=== PATIENT | male | born 1950 | race Caucasian/White ===

== ENCOUNTER 2017-03-14 05:52 | Emergency (ER) | payer MEDICARE, OTHER ==
--- NOTE | ~2017-03-14 | EKG ---
PATIENT: TRUMAN GALLARDO UNIT #: [id number] Ventricular Rate: 79 BPM Atrial Rate: 79 BPM P-R Interval: 164 ms QRS Duration: 88 ms Q-T Interval: 386 ms QTC Calculation(Bezet): 442 ms P [place]: 88 degrees Calculated R [place]: 4 degrees Calculated T [place]: 11 degrees Diagnosis Line: Normal sinus rhythm Diagnosis Line: Nonspecific ST abnormality Diagnosis Line: Abnormal ECG Diagnosis Line: No previous ECGs available Diagnosis Line: Confirmed by BERNIE MARINA MD ([id number]) on Diagnosis Line: 03/18/2017 8:50:27 AM INTERPRETING MD: LAINA CALLOWAY
--- NOTE | ~2017-03-14 | CT2 ---
[facility]. [facility] A Service of [facility] RADIOLOGY TEXT RESULTS PATIENT: TRUMAN GALLARDO LOCATION: SED : 52 UNIT #: [id number] AGE: [address]: Selene Mukherjee MD SEX: M ORDER DR: [id number] [address] [id number] MR#: [id number] #: [id number] NAME: TRUMAN GALLARDO : 1950 SEX: M STUDY DATE/TIME: 03/14/2017 8:10 UNIT: SED ROOM: STUDY DESCRIPTION: CT Abd and Pelv W Cont Attending Physician: Sleene Mukherjee M.D. Ordering Physician: Selene Mukherjee M.D. Primary Care Physician: No Primary Care Physician MEDICAL IMAGING REPORT This report is preliminary unless electronic signature is present. EXAM Abdomen and pelvis CT with contrast. HISTORY Nausea, vomiting, and diarrhea for the past 2 days. TECHNIQUE Axial images were obtained through the abdomen pelvis with contrast. 100 mL of Isovue was used. This CT exam was performed with one or more of the following radiation dose reduction techniques: automatic exposure control, adjustment of mA and/or kV according to patient size, and iterative reconstruction. FINDINGS Linear scarring at the right lung base posteromedially is unchanged from the previous exam. The liver, spleen, and pancreas are normal in size. The biliary tree is borderline prominent and the gallbladder is quite distended. The gallbladder wall does not appear to be thickened or hyperenhancing. There are some subtle density variations within the gallbladder suggesting possible gallstones. No distended bowel loops are seen. Moderately increased stool is seen throughout the colon. In the pelvis, there is no evidence of adenopathy, mass, or fluid collection. Several right renal cysts are again seen. No suspicious renal masses are noted. IMPRESSION 1. The gallbladder is distended. There is a suggestion of multiple gallstones versus sludge in the gallbladder. The gallbladder wall does not appear to be thickened. 2. Multiple right renal cysts. 3. Moderately increased stool throughout the colon. No evidence of mechanical bowel obstruction. [facility] A Service of [facility] RADIOLOGY TEXT RESULTS PATIENT: TRUMAN GALLARDO LOCATION: SED : 52 UNIT #: [id number] AGE: [address]: Selene Mukherjee MD SEX: M ORDER DR: Dictated by... Jay Jay Duckworth M.D. THIS IS AN ELECTRONICALLY VERIFIED REPORT Jay Jay Duckworth M.D. at 03/14/2017 11:28 AM EDWARD/[facility] TD: 03/14/2017 09:43 JOB #: [id number] MEDICAL IMAGING REPORT Page 1 of 1
[~2017-03-14 05:52] MED LIST: ASPIRIN81 M1 PO; NEXIUM PO; SEROQUEL PO; VICODIN 5/1 TAB 5/50 PO
[2017-03-14] MEDS ORDERED: CLOPIDOGREL75 MG PO (06:02)
[2017-03-14] MEDS ORDERED: SIMVASTATIN (06:02)
[2017-03-14] MEDS ORDERED: LISINOPRIL (06:02)
[2017-03-14 07:13] LABS: BASOPHIL% 0.3 % (0-2.5); HEMATOCRIT 42.4 % (38.0-50.0); HEMOGLOBIN 14.4 gm/dL (13.0-16.0); LYMPHOCYTE# 0.5 X10e3 (1.0-3.5); LYMPHOCYTE% 5.8 % (17.0-45.0); MEAN CELL VOLUME 90.1 FL (83-96); MEAN CORPUSCULAR HEMOGLOBIN 30.7 PG (28-34); MEAN PLATELET VOLUME 8.7 FL (6.5-11.5); MONOCYTE# 0.4 X10e3 (0-1.0); NEUTROPHIL# 8.5 X10e3 (1.5-7.1); NEUTROPHIL% 89.9 % (40-75); PLATELET COUNT 193 X10e3 (140-420); RED BLOOD COUNT 4.71 X10e (3.90-5.60); RED CELL DISTRIBUTION WIDTH 15.4 % (11.0-15.5); WHITE BLOOD COUNT 9.4 X10e3 (4.0-10.5)
[2017-03-14 07:15] LABS: DIFF IND NO
[2017-03-14 07:29] LABS: INR 1.1; PROTHROMBIN TIME (PATIENT) 11.9 SECONDS (9.5-12.4)
[2017-03-14 07:36] LABS: PARTIAL THROMBOPLASTIN TIME 27.2 SECONDS (25.6-38.1)
[2017-03-14 07:38] LABS: ALBUMIN SERUM 4.7 g/dL (3.5-5.0); ALKALINE PHOSPHATASE 100 U/L (32-92); ALT (SGPT) 19 U/L (10-40); AMYLASE 12 U/L (0-46); AST (SGOT) 25 U/L (10-42); BILIRUBIN, DIRECT 0.1 mg/dL (0.0-0.2); BILIRUBIN,INDIRECT 0.4 mg/dL (0.0-0.9); BILIRUBIN,TOTAL 0.5 mg/dL (0.2-2.0); BLOOD UREA NITROGEN 20 mg/dL (9-23); BUN/CREATININE RATIO 18.18; CARBON DIOXIDE 28 mmol/L (22-31); CHLORIDE 104 mmol/L (100-111); CREATININE SERUM 1.1 mg/dL (0.6-1.4); GLOM FILT RATE Estimated 70.1 mL/min (>60); GLUCOSE FASTING 142 mg/dL (70-110); LIPASE 22 U/L (22-51); POTASSIUM 3.9 mmol/L (3.5-5.1); PROTEIN TOTAL SERUM 8.1 g/dL (6.0-8.3); SODIUM 138 mmol/L (135-145)
[2017-03-14 07:40] LABS: ALCOHOL BLOOD <5 mg/dL (0)
[2017-03-14 07:50] LABS: POC - TROPONIN <0.05 ng/mL (<=0.05)
== END 2017-03-14 12:01 ==
LOC: SED 05:52
PROVIDERS: Student in an Organized Health Care Education/Training Program
DX: K80.10 Calculus of gallbladder with chronic cholecystitis without obstruction (principal); I10 Essential (primary) hypertension; I25.10 Atherosclerotic heart disease of native coronary artery without angina pectoris; E78.5 Hyperlipidemia, unspecified; K21.9 Gastro-esophageal reflux disease without esophagitis; F17.210 Nicotine dependence, cigarettes, uncomplicated; Z90.89 Acquired absence of other organs; Z79.899 Other long term (current) drug therapy
CPT/HCPCS: 36415; 74177; 80048; 80076; 82150; 82553; 83690; 83735; 84484; 85025; 85610; 85730; 93005; 96361; 96365; 96375; 96376; 99285; C9113; G0480; J1170; J2405; J2543; J2765; Q9967